=== PATIENT | female | born 1985 | race Caucasian/White ===

== ENCOUNTER → 2022-04-26 08:14 | Outpatient (BNVA) | payer MEDICAID, SELFPAY | PROVIDERS: Family Provider Family Medicine; PCP Family Medicine; Visit Provider Specialist | DX: G40.309 Generalized idiopathic epilepsy and epileptic syndromes, not intractable, without status epilepticus (principal); G80.3 Athetoid cerebral palsy; Z99.3 Dependence on wheelchair | CPT/HCPCS: 99204 ==

== ENCOUNTER → 2022-05-04 12:54 | Outpatient (BNVA) | payer MEDICAID, SELFPAY | PROVIDERS: Family Provider Family Medicine; PCP Family Medicine; Visit Provider Specialist | DX: G24.3 Spasmodic torticollis (principal); G80.3 Athetoid cerebral palsy; G40.309 Generalized idiopathic epilepsy and epileptic syndromes, not intractable, without status epilepticus | CPT/HCPCS: 64616; 99213; J0585 ==

== ENCOUNTER → 2022-08-24 13:40 | Outpatient (BNVA) | payer MEDICAID, SELFPAY | PROVIDERS: Family Provider Family Medicine; PCP Family Medicine; Visit Provider Specialist | DX: G24.3 Spasmodic torticollis (principal); G40.309 Generalized idiopathic epilepsy and epileptic syndromes, not intractable, without status epilepticus; G80.0 Spastic quadriplegic cerebral palsy; G80.3 Athetoid cerebral palsy | CPT/HCPCS: 64616; 64644; 99214; J0585 ==

== ENCOUNTER → 2022-11-23 13:04 | Outpatient (BNVA) | payer MEDICAID, SELFPAY | PROVIDERS: Family Provider Family Medicine; PCP Family Medicine; Visit Provider Specialist | DX: G80.0 Spastic quadriplegic cerebral palsy (principal); G40.309 Generalized idiopathic epilepsy and epileptic syndromes, not intractable, without status epilepticus; F40.298 Other specified phobia; Z99.3 Dependence on wheelchair | CPT/HCPCS: 64616; 99214; J0585 ==

== ENCOUNTER → 2023-03-01 13:33 | Outpatient (BNVA) | payer MEDICAID, SELFPAY | PROVIDERS: Family Provider Family Medicine; PCP Family Medicine; Visit Provider Specialist | DX: G80.0 Spastic quadriplegic cerebral palsy (principal) | CPT/HCPCS: 64644; J0585 ==

== ENCOUNTER → 2023-06-07 08:40 | Outpatient (BNVA) | payer MEDICAID, SELFPAY | PROVIDERS: Family Provider Family Medicine; PCP Family Medicine; Visit Provider Specialist | DX: G80.3 Athetoid cerebral palsy; G40.309 Generalized idiopathic epilepsy and epileptic syndromes, not intractable, without status epilepticus; G80.9 Cerebral palsy, unspecified | CPT/HCPCS: 64644; 64645; 99214; J0585 ==

== ENCOUNTER → 2023-09-06 08:33 | Outpatient (BNVA) | payer MEDICAID, SELFPAY | PROVIDERS: Family Provider Family Medicine; PCP Family Medicine; Visit Provider Specialist | DX: G80.0 Spastic quadriplegic cerebral palsy (principal); G80.3 Athetoid cerebral palsy; G80.9 Cerebral palsy, unspecified; G40.309 Generalized idiopathic epilepsy and epileptic syndromes, not intractable, without status epilepticus | CPT/HCPCS: 64644; 64645; 99212; J0585 ==

== ENCOUNTER → 2023-11-30 07:57 | Outpatient (BNVA) | payer MEDICAID, SELFPAY | PROVIDERS: Family Provider Family Medicine; PCP Family Medicine; Visit Provider Specialist | DX: G80.3 Athetoid cerebral palsy (principal); G40.309 Generalized idiopathic epilepsy and epileptic syndromes, not intractable, without status epilepticus; G80.0 Spastic quadriplegic cerebral palsy | CPT/HCPCS: 64644; 99212; J0585 ==

== ENCOUNTER → 2024-02-29 07:32 | Outpatient (BNVA) | payer MEDICAID, SELFPAY | PROVIDERS: Family Provider Family Medicine; PCP Family Medicine; Visit Provider Specialist | DX: G80.0 Spastic quadriplegic cerebral palsy (principal); G80.3 Athetoid cerebral palsy; G40.309 Generalized idiopathic epilepsy and epileptic syndromes, not intractable, without status epilepticus | CPT/HCPCS: 64644; 99212; J0585 ==

== ENCOUNTER → 2024-06-06 07:38 | Outpatient (BNVA) | payer MEDICAID, SELFPAY | PROVIDERS: Family Provider Family Medicine; PCP Family Medicine; Visit Provider Specialist | DX: G80.0 Spastic quadriplegic cerebral palsy (principal) | CPT/HCPCS: 64644; J0585; J9999 ==

== ENCOUNTER → 2024-09-04 07:55 | Outpatient (BNVA) | payer MEDICAID, SELFPAY | PROVIDERS: Family Provider Family Medicine; PCP Family Medicine; Visit Provider Specialist | DX: G80.0 Spastic quadriplegic cerebral palsy (principal) | CPT/HCPCS: 64644; J0585; J9999 ==

== ENCOUNTER → 2024-10-22 11:18 | Outpatient (BNVA) | payer MEDICAID, SELFPAY | PROVIDERS: Family Provider Family Medicine; PCP Family Medicine; Visit Provider Specialist | DX: G40.309 Generalized idiopathic epilepsy and epileptic syndromes, not intractable, without status epilepticus (principal); G80.3 Athetoid cerebral palsy; G80.0 Spastic quadriplegic cerebral palsy | CPT/HCPCS: 99214 ==

== ENCOUNTER → 2024-12-04 12:28 | Outpatient (BNVA) | payer MEDICAID, SELFPAY | PROVIDERS: Family Provider Family Medicine; PCP Family Medicine; Visit Provider Specialist | DX: G80.0 Spastic quadriplegic cerebral palsy (principal); G80.3 Athetoid cerebral palsy; G40.309 Generalized idiopathic epilepsy and epileptic syndromes, not intractable, without status epilepticus | CPT/HCPCS: 64644; J0585; J9999 ==

== ENCOUNTER 2025-01-19 16:37 | Emergency (ER) | payer MEDICAID, SELFPAY ==
[2025-01-19] VITALS (7 sets, daily range): BP systolic 104–119; BP diastolic 76–98; PULSE 108–129; RESP 20; TEMP 36.9; O2SAT 93–97
--- NOTE | 2025-01-19 17:39 | W.ED.ABDPA2 ---
HPI - Abdominal Pain General: Chief Complaint: Abdominal Pain Stated Complaint: abd pains, no bowel movement in a few weeks Time Seen by Provider: 01/19/25 17:10 History of Present Illness: 39-year-old female presents to the emergency room with her mother complaining of being constipated. Mother states she has not a bowel movement last couple weeks concerned that she may be impacted no fever sweats chills no vomiting or diarrhea. Patient has severe cerebral palsy and is nonverbal. Related Data Home Medications ?Medication ?Instructions ?Recorded ?Confirmed buspirone 5 mg tablet 5 mg PO TID 04/26/22 12/04/24 citalopram 40 mg tablet 40 mg PO DAILY 04/26/22 12/04/24 Previous Rx's ?Medication ?Instructions ?Recorded yaswalzgdohqlvz-jihhmrgstwygnxi-RT 5 ml PO Q6H PRN cold symptoms #118 12/16/22 2 mg-30 mg-10 mg/5 mL oral syrup mL (Bromfed DM) baclofen 5 mg tablet 5 mg PO QID #360 tabs 10/28/24 lamotrigine 50 mg disintegrating See Rx Instructions .Route 11/26/24 tablet .COMPLEX #540 tabs diazepam 10 mg tablet 10 mg PO ONCE PRN anxiety 24 hours 12/04/24 #2 tabs Allergies Allergy/AdvReac Type Severity Reaction Status Date / Time No Known Allergies Allergy Verified 01/19/25 16:48 [facility] ED PFSH: Medical History (Updated 01/19/25 @ 20:04 by José Matos DO) Cerebral palsy Social History Smoking and tobacco/nicotine status: never used tobacco/nicotine Second hand smoke exposure: No Alcohol intake: never Physical Exam HENMT: COMMON NORMALS: normocephalic, atraumatic and hearing grossly normal bilaterally HEAD & SCALP: normocephalic and atraumatic Resp: COMMON NORMALS: normal respiratory effort, No retractions, No use of accessory muscles and clear to auscultation bilaterally AUSCULTATION: clear to auscultation bilaterally Cardio: COMMON NORMALS: regular rate, regular rhythm and No murmurs present (Cardio) RATE: regular rate RHYTHM: regular rhythm GI: COMMON NORMALS: Soft to palpation and No hepatosplenomegaly present AUSCULTATION: Yes normoactive bowel sounds PALPATION: Yes Soft to palpation, No Tenderness to palpation present (GI), No Guarding due to palpation present (GI) and Yes No hepatosplenomegaly present Extremity: COMMON NORMALS: capillary refill normal, no clubbing, cyanosis or edema, no calf tenderness and no pedal edema OTHER: Contractures of all limbs. Skin: COMMON NORMALS: no rashes or lesions noted GENERAL SKIN EXAM: no rashes or lesions noted Course Vital Signs: Vital signs: Vital Signs Temperature 98.4 F 01/19/25 16:41 Pulse Rate 108 H 01/19/25 21:20 Respiratory Rate 20 H 01/19/25 18:00 Blood Pressure 113/87 01/19/25 21:20 Pulse Oximetry 96 01/19/25 21:20 Oxygen Delivery Me thod Room Air 01/19/25 21:00 MDM - Abdominal Pain Medical Decision Making Medical decision making Social determinants: Patient has severe's CPE has good support from her mother is her primary caregiver I reviewed the patient's medical record. I reviewed the patient's current home meds. Alternate historians: Mother Differential diagnosis: Constipation, bowel obstruction, sepsis, cystitis, pyelonephritis Lab Review: Labs reviewed as found in the chart. No leukocytosis 3+ ketones in the urine but no signs of infection chemistry panel shows very slight anion gap otherwise unremarkable Imaging: Acute abdominal series no retained stool no signs of bowel obstruction Assessment of risk Level of risk: Low Hospitalization considerations: Consideration for hospitalization pending findings. No emergent findings did not require hospitalization Reexamination: Unchanged Assessment and plan: Patient given IV fluids reviewed findings with the mother. Discharge patient home have her follow-up with primary care. Lab Data 01/19/25 18:05 01/19/25 18:05 Labs/Radiology: Radiology Impressions Chest/Abdomen X-ray 01/19/25 17:40 IMPRESSION: No acute intra-abdominal findings. Laboratory Results WBC 7.67 10^3/uL (3.29-11.43) 01/19/25 18:05 RBC 4.95 10^6/uL (3.85-5.65) 01/19/25 18:05 Hgb 13.10 g/dL (11.27-16.99) 01/19/25 18:05 Hct 41.6 % (36-47) 01/19/25 18:05 MCV 84.0 fl (85-98) L 01/19/25 18:05 MCH 26.5 pg (27-33) L 01/19/25 18:05 MCHC 31.5 g/dL (30-55) 01/19/25 18:05 RDW 13.6 % (12.1-15.1) 01/19/25 18:05 Plt Count 259 10^3/cmm (157-399) 01/19/25 18:05 MPV 10.3 fL (7.4-10.4) 01/19/25 18:05 Neut % (Auto) 54.1 % 01/19/25 18:05 Lymph % (Auto) 36.1 % 01/19/25 18:05 Juncos % (Auto) 5.0 % 01/19/25 18:05 Eos % (Auto) 4.0 % 01/19/25 18:05 Baso % (Auto) 0.5 % 01/19/25 18:05 Neut # (Auto) 4.15 10^3/uL (1.8-7.7) 01/19/25 18:05 Lymph # (Auto) 2.8 10^3/uL (0.8-4.8) 01/19/25 18:05 Juncos # (Auto) 0.4 10^3/uL (0.2-0.9) 01/19/25 18:05 Eos # (Auto) 0.3 10^3/uL (0.0-0.8) 01/19/25 18:05 Baso # (Auto) 0.0 10^3/uL (0.0-0.1) 01/19/25 18:05 Nucleated RBC % (auto) 0 % 01/19/25 18:05 Nucleated RBCs # 0.0 /100WBC 01/19/25 18:05 Sodium 142 mmol/L (136-145) 01/19/25 18:05 Potassium 4.3 mmol/L (3.5-5.1) 01/19/25 18:05 Chloride 105 mmol/L (98-107) 01/19/25 18:05 Carbon Dioxide 21 mmol/L (22-29) L 01/19/25 18:05 Anion Gap 20.3 (5-19) H 01/19/25 18:05 BUN 13 mg/dL (6-20) 01/19/25 18:05 Creatinine 0.9 mg/dL (0.5-0.9) 01/19/25 18:05 GFR Calculation 69.7 mL/min (90-130) L 01/19/25 18:05 Glucose 82 mg/dL (65-115) 01/19/25 18:05 Calculated Osmolality 293 mOsm/kg (285-295) 01/19/25 18:05 Lactic Acid 1.9 mmol/L (0.5-2.2) 01/19/25 18:05 Calcium 9.5 mg/dL (8.5-10.5) 01/19/25 18:05 Total Bilirubin 0.3 mg/dL (0.15-1.2) 01/19/25 18:05 AST 20 U/L (0-32) 01/19/25 18:05 ALT 11 U/L (0-33) 01/19/25 18:05 Alkaline Phosphatase 65 U/L (35-105) 01/19/25 18:05 Total Protein 7.6 g/dL (6.6-8.7) 01/19/25 18:05 Albumin 4.4 g/dL (3.5-5.2) 01/19/25 18:05 Globulin 3.2 g/dL (1.3-4.6) 01/19/25 18:05 Lipase 48 U/L (13-60) 01/19/25 18:05 HCG, Qual Negative (Negative) 01/19/25 18:05 Urine Color Yellow (Yellow) 01/19/25 18:10 Urine Appearance Clear (CLEAR) 01/19/25 18:10 Urine pH 5.5 (5-7) 01/19/25 18:10 Ur Specific [place] 1.032 (1.005-1.030) H 01/19/25 18:10 Urine Protein 1+ (Negative) A 01/19/25 18:10 Urine Glucose (UA) Negative (Normal) 01/19/25 18:10 Urine Ketones 3+ (Negative) H 01/19/25 18:10 Urine Blood Negative (Negative) 01/19/25 18:10 Urine Nitrate Negative (Negative) 01/19/25 18:10 Urine Bilirubin Negative (Negative) 01/19/25 18:10 Urine Urobilinogen 1.0 mg/dL (Negative) 01/19/25 18:10 Ur Leukocyte Esterase Negative (Negative) 01/19/25 18:10 Urine RBC 0-2 /hpf (0-2) 01/19/25 18:10 Urine WBC 0-5 /hpf (0-5) 01/19/25 18:10 Ur Squamous Epith Cells 0-5 /hpf (0-5) 01/19/25 18:10 Amorphous Sediment Not Reportable 01/19/25 18:10 Urine Bacteria None seen /hpf (NONE) 01/19/25 18:10 Hyaline Casts 2.87 /lpf 01/19/25 18:10 All radiology interpretation(s) finalized by discharge Discharge Plan Discharge Patient Disposition: Home Clinical Impression: Dehydration, Spastic quadriplegic cerebral palsy Condition: Stable Prescriptions: No Action vjsewrdwaypolzi-vawmuvuyj-AK [Bromfed DM] 2-30-10 mg/5 mL syrup 5 ml PO Q6H PRN (Reason: cold symptoms) Qty: 118 0RF citalopram 40 mg tablet 40 mg PO DAILY buspirone 5 mg tablet 5 mg PO TID diazepam 10 mg tablet 10 mg PO ONCE PRN (Reason: anxiety) 1 Days Qty: 2 3RF Rx Instructions: Take 1 prior to procedure and repeat if necessary baclofen 5 mg tablet 5 mg PO QID Qty: 360 0RF lamotrigine 50 mg tablet,disintegrating See Rx Instructions .ROUTE .COMPLEX Qty: 540 3RF Dose Instruction: TAKE THREE TABLETS BY MOUTH TWICE DAILY Rx Instructions: TAKE THREE TABLETS BY MOUTH TWICE DAILY Discharge Orders: Discharge ED (Routine); Ordered 01/19/25 Ordered By: José Matos Referrals: Johanny Jones MD [Primary Care Provider, Family Practice] Discharge Diet: Usual diet Discharge Activity: Resume usual activity Patient Instructions: Abdominal Pain (ED), Opioid Safety, Pain Management, Patient Portal & Claudia Instructions Activity Restrictions/Additional Instructions: Thank you for choosing [facility] for your healthcare needs today. It is very important that you follow up as instructed or that you return to the Emergency Department should you have concerns or if your condition changes or worsens in any way. Emergency department visits are focused on emergent conditions, in some cases you may require further evaluation on an outpatient basis. You were seen in the emergency room concerned about constipation. KUB did not show any retained stool in the rectum or the descending colon. Urine did show some ketones suggesting mild dehydration. You are given IV fluids. Your other labs did not show significant abnormality. Will discharge you home increase fluid intake and follow-up with your primary care doctor. (Please note that included in your discharge packet is information concerning opioid safety and pain management. This information is given to all patients were discharged from the ER regardless of their discharge diagnosis or the medicines they usually take or are prescribed.) Print Language: Kuwaiti Coding Level of Care Code ED French Cord Binder for Shea Gaxiola
--- NOTE | 2025-01-19 17:40 | XRR_ITS ---
PROCEDURE INFORMATION: Exam: XR Abdomen Exam date and time: 01/19/2025 6:18 PM Age: 39 years old Clinical indication: Constipation; PT in the position got best images possible; Additional info: Abdominal pain TECHNIQUE: Imaging protocol: Radiologic exam of the abdomen. Views: 2 Views. Upright and supine views. COMPARISON: No relevant prior studies available. FINDINGS: Lungs: Lung bases are clear. Gastrointestinal tract: Nonobstructive bowel gas pattern. Mild increased stool burden predominantly about the hepatic flexure/right upper quadrant. Intraperitoneal space: Normal. No free air. Bones/joints: Levoscoliosis of thoracolumbar spine. XR/XR acute abdomen series [id number] IMPRESSION: No acute intra-abdominal findings.
[2025-01-19 18:28] LABS: Glucose Urine UA Negative (Normal); Nitrate Urine Negative (Negative)
[2025-01-19 18:33] LABS: Add Urine Microscopic? YES
[2025-01-19 18:57] LABS: Specific Gravity, Urine 1.032 (1.005-1.030)
[2025-01-19 19:00] LABS: Hematocrit 41.6 % (36-47); Hemoglobin 13.10 g/dL (11.27-16.99); Mean Corpuscular HGB Conc 31.5 g/dL (30-55); Mean Corpuscular Hemoglobin 26.5 pg (27-33); Mean Corpuscular Volume 84.0 fl (85-98); Nucleated Red Blood Cells % 0 %; Platelet Count 259 10^3/cmm (157-399); Red Blood Count 4.95 10^6/uL (3.85-5.65); White Blood Count 7.67 10^3/uL (3.29-11.43)
[2025-01-19 19:11] LABS: Alanine Aminotransferase 11 U/L (0-33); Albumin Level 4.4 g/dL (3.5-5.2); Alkaline Phosphatase 65 U/L (35-105); Anion Gap 20.3 (5-19); Aspartate Amino Transferase 20 U/L (0-32); Blood Urea Nitrogen 13 mg/dL (6-20); Calcium 9.5 mg/dL (8.5-10.5); Carbon Dioxide 21 mmol/L (22-29); Chloride 105 mmol/L (98-107); Globulin 3.2 g/dL (1.3-4.6); Glucose 82 mg/dL (65-115); Lipase 48 U/L (13-60); Osmolality Calculated 293 mOsm/kg (285-295); Potassium 4.3 mmol/L (3.5-5.1); Sodium 142 mmol/L (136-145); Total Protein 7.6 g/dL (6.6-8.7)
[2025-01-19 19:15] LABS: HCG, Serum Qual Negative (Negative)
[2025-01-19 19:16] LABS: Lactic Sepsis W/Reflex 1.9 mmol/L (0.5-2.2)
--- OUTSIDE RECORDS SUMMARY | 2025-01-19 21:24 | XMS_ITS | Encounter Summary ---
Author Organization [facility] Address [address] [place] [address] Care Team Providers Care Wirer Passenger Car Name Role Phone Cj Huynh DO Primary Care Provider Unava ilable Encounter Details Date Type Department Care Team (Latest Contact Info) Description 02/19/[address] [phone] Cj Huynh DO NO ADDRESS ON FILE Acute Pharyngitis (Primary Dx) Social History Tobacco Use Types Packs/Day Years Used Date Smoking Tobacco: Never Assessed Comments Unknown Sex and Gender Information Value Date Recorded Sex Assigned at Not on file Legal Sex Female 2:43 AM TITLE EXAMINER Gender Identity Not on file Sexual Orientation Not on file documented as of this encounter Plan of Treatment Not on file documented as of this encounter Visit Diagnoses Diagnosis Acute pharyngitis- Primary documented in this encounter Care Teams Wirer Passenger Car Relationship Specialty Start Date End Date Cj Huynh DO PCP - General Family Practice 03/19/12 documented as of this encounter
--- OUTSIDE RECORDS SUMMARY | 2025-01-19 21:24 | XMS_ITS | Encounter Summary ---
Author Organization [facility] Address [address] [place] [address] Care Team Providers Care Landscaping Crew Leader Name Role Phone Cj Huynh DO Primary Care Provider Unava ilable Encounter Details Date Type Department Care Team (Latest Contact Info) Description 05/21/[address] [phone] Cj Huynh DO NO ADDRESS ON FILE Allergic Rhinitis, Cause Unspecified (Primary Dx); Acute Upper Respiratory Infections of Unspecified Site; Cough; Unspecified Infantile Cerebral Palsy (CMS/HCC) Social History Tobacco Use Types Packs/Day Years Used Date Smoking Tobacco: Never Assessed Comments Unknown Sex and Gender Information Value Date Recorded Sex Assigned at Not on file 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
--- OUTSIDE RECORDS SUMMARY | 2025-01-19 21:24 | XMS_ITS | Encounter Summary ---
Author Organization [facility] Address [address] [place] [address] Care Team Providers Care Supervisor Gluing Name Role Phone Cj Huynh DO Primary Care Provider Unava ilable Encounter Details Date Type Department Care Team (Latest Contact Info) Description 05/04/[address] [phone] Cj Huynh DO NO ADDRESS ON FILE Other Convulsions (CMS/HCC) (Primary Dx) Social History Tobacco Use Types Packs/Day Years Used Date Smoking Tobacco: Never Assessed Comments Unknown Sex and Gender Information Value Date Recorded Sex Assigned at Not on file 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 Sex Female 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 Gender Identity Not on file Sexual Orientation Not on file documented as of this encounter Plan of Treatment Not on file documented as of this encounter Procedures Procedure Name Priority Date/Time Associated Diagnosis Comments PHENOBARBITAL LEVEL Routine 05/04/2006 8 :55 AM CDT documented in this encounter Results * PHENOBARBITAL LEVEL (05/04/2006 8:55 AM CDT) PHENOBARBITAL LEVEL 20.0 15.0 - 40.0 mcg/mL INTERFACE SYSTEM 05/04/2006 8:55 AM CDT us jC Huynh DO CHEMISTRY ORDERABLES Edited INTERFACE SYSTEM Refer to clinic/hospital department documented in this encounter Visit Diagnoses Diagnosis Other convulsions- Primary documented in this encounter Care Teams Supervisor Gluing Relationship Specialty Start Date End Date Cj Huynh DO PCP - General Family Practice 03/19/12 documented as of this encounter
--- OUTSIDE RECORDS SUMMARY | 2025-01-19 21:24 | XMS_ITS | Encounter Summary ---
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
--- OUTSIDE RECORDS SUMMARY | 2025-01-19 21:24 | XMS_ITS | Encounter Summary ---
Author Organization [facility] Address [address]ños: [place] [address] Care Team Providers Care Can Handler Name Role Phone Cj Huynh DO Primary Care Provider Unava ilable Encounter Details Date Type Department Care Team (Late st Contact Info) Description 02/16/1999 Outpatient Historical Chacorta Segundo MD [address] [place] [phone] Social History Tobacco Use Types Packs/Day Years Used Date Smoking Tobacco: Never Assessed Comments Unknown Sex and Gender Information Value Date Recorded Sex Assigned at Not on file Legal Sex Female 2:43 AM RN LACTATION CONSULTANT Gender Identity Not on file Sexual Orientation Not on file documented as of this encounter Plan of Treatment Not on file documented as of this encounter Visit Diagnoses Not on filedocumented in this encounter Care Teams Can Handler Relationship Specialty Start Date End Date Cj Huynh DO PCP - General Family Practice 03/19/12 documented as of this encounter
--- OUTSIDE RECORDS SUMMARY | 2025-01-19 21:24 | XMS_ITS | Encounter Summary ---
Author Organization [facility] Address [address] [place] [address] Care Team Providers Care Chemist Instrumentation Name Role Phone Cj Huynh DO Primary Care Provider Unava ilable Encounter Details Date Type Department Care Team (Latest Contact Info) Description 08/02/[address] [phone] Cj Huynh DO NO ADDRESS ON FILE Routine child health exam (Primary Dx); SKIN HYPERTRO/ATROPH NOS; VIRAL WARTS NOS Social History Tobacco Use Types Packs/Day Years Used Date Smoking Tobacco: Never Assessed Comments Unknown Sex and Gender Information Value Date Recorded Sex Assigned at Not on file Legal Sex Female 2:43 AM LIBRARY CLERK TALKING BOOKS Gender Identity Not on file Sexual Orientation Not on file documented as of this encounter Plan of Treatment Not on file documented as of this encounter Visit Diagnoses Diagnosis Routine child health exam- Primary Routine or child health check Unspecified hypertrophic and atrophic condition of skin Viral warts, unspecified documented in this encounter Care Teams Chemist Instrumentation Relationship Specialty Start Date End Date Cj Huynh DO PCP - General Family Practice 03/19/12 documented as of this encounter
--- OUTSIDE RECORDS SUMMARY | 2025-01-19 21:24 | XMS_ITS | Encounter Summary ---
Author Organization [facility] Address [address] [place] [address] Care Team Providers Care Cage Shift Manager Name Role Phone Cj Huynh DO Primary Care Provider Unava ilable Encounter Details Date Type Department Care Team (Latest Contact Info) Description 10/03/[address] [facility] Medicine[address] [phone] Cj Huynh DO NO ADDRESS ON FILE Routine Child Health Exam (Primary Dx) Social History Tobacco Use Types Packs/Day Years Used Date Smoking Tobacco: Never Assessed Comments Unknown Sex and Gender Information Value Date Recorded Sex Assigned at Not on file Legal Sex Female 2:43 AM SHOE SINGER Gender Identity Not on file Sexual Orientation Not on file documented as of this encounter Plan of Treatment Not on file documented as of this encounter Visit Diagnoses Diagnosis Routine child health exam- Primary Routine infant or child health check documented in this encounter Care Teams Cage Shift Manager Relationship Specialty Start Date End Date Cj Huynh DO PCP - General Family Practice 03/19/12 documented as of this encounter
--- OUTSIDE RECORDS SUMMARY | 2025-01-19 21:24 | XMS_ITS | Encounter Summary ---
Author Organization [facility] Address [address] [place] [address] Care Team Providers Care Information Systems Auditor Name Role Phone Cj Huynh DO Primary Care Provider Unava ilable Encounter Details Date Type Department Care Team (Latest Contact Info) Description 10/03/[address] [phone] Cj Huynh DO NO ADDRESS ON FILE Other Convulsions (CMS/HCC) (Primary Dx) Social History Tobacco Use Types Packs/Day Years Used Date Smoking Tobacco: Never Assessed Comments Unknown Sex and Gender Information Value Date Recorded Sex Assigned at Not on file Legal Sex Female 2:43 AM SUBSTANCE ADDICTION COORDINATOR Gender Identity Not on file Sexual Orientation Not on file documented as of this encounter Plan of Treatment Not on file documented as of this encounter Procedures Procedure Name Priority Date/Time Associated Diagnosis Comments PHENOBARBITAL LEVEL Routine 10/03/2005 3 :17 PM CDT documented in this encounter Results * PHENOBARBITAL LEVEL (10/03/2005 3:17 PM CDT) PHENOBARBITAL LEVEL 24.4 15.0 - 40.0 mcg/mL INTERFACE SYSTEM 10/03/2005 3:17 PM CDT us Cj Huynh DO CHEMISTRY ORDERABLES Final R esult INTERFACE SYSTEM Refer to clinic/hospital department documented in this encounter Visit Diagnoses Diagnosis Other convulsions- Primary documented in this encounter Care Teams Information Systems Auditor Relationship Specialty Start Date End Date Cj Huynh DO PCP - General Family Practice 03/19/12 documented as of this encounter
--- OUTSIDE RECORDS SUMMARY | 2025-01-19 21:26 | XMS_ITS | Encounter Summary ---
Author Organization [facility] Address [address] [place] [address] Care Team Providers Care Sheep Sorter Name Role Phone Cj Huynh DO Primary Care Provider Unava ilable Encounter Details Date Type Department Care Team (Latest Contact Info) Description 01/13/2000 Outpatient Historical [facility] Medicine [address] [phone] Bandar Marie MD [address] [phone] Acute tonsillitis (Primary Dx) Social History Tobacco Use Types Packs/Day Years Used Date Smoking Tobacco: Never Assessed Comments Unknown Sex and Gender Information Value Date Recorded Sex Assigned at Not on file Legal Sex Female 2:43 AM 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
--- OUTSIDE RECORDS SUMMARY | 2025-01-19 21:26 | XMS_ITS | Encounter Summary ---
Author Organization [facility] Address [address] [place] [address] Care Team Providers Care Seasonal Customer Service Associate Name Role Phone Cj Huynh DO Primary Care Provider Unava ilable Encounter Details Date Type Department Care Team (Latest Contact Info) Description 09/14/[address] [phone] Cj Huynh DO NO ADDRESS ON FILE Other Specified Viral Warts (Primary Dx) Social History Tobacco Use Types Packs/Day Years Used Date Smoking Tobacco: Never Assessed Comments Unknown Sex and Gender Information Value Date Recorded Sex Assigned at Not on file Legal Sex Female 2:43 AM COAL GASIFICATION TECHNICIAN Gender Identity Not on file Sexual Orientation Not on file documented as of this encounter Plan of Treatment Not on file documented as of this encounter Visit Diagnoses Diagnosis Other specified viral warts- Primary documented in this encounter Care Teams Seasonal Customer Service Associate Relationship Specialty Start Date End Date Cj Huynh DO PCP - General Family Practice 03/19/12 documented as of this encounter
--- OUTSIDE RECORDS SUMMARY | 2025-01-19 21:26 | XMS_ITS | Encounter Summary ---
Author Organization [facility] Address [address] [place] [address] Care Team Providers Care Mold Press Operator Name Role Phone Cj Huynh DO Primary Care Provider Unava ilable Encounter Details Date Type Department Care Team (Latest Contact Info) Description 05/30/2004 Outpatient Historical [address] [phone] Cj Huynh DO NO ADDRESS ON FILE LOWER LEG INJURY NOS (Primary Dx) Social History Tobacco Use Types Packs/Day Years Used Date Smoking Tobacco: Never Assessed Comments Unknown Sex and Gender Information Value Date Recorded Sex Assigned at Not on file Legal Sex Female 2:43 AM LINUX SYSTEMS ANALYST Gender Identity Not on file Sexual Orientation Not on file documented as of this encounter Plan of Treatment Not on file documented as of this encounter Visit Diagnoses Diagnosis Injury, other and unspecified, knee, leg, ankle, and foot- Primary documented in this encounter Care Teams Mold Press Operator Relationship Specialty Start Date End Date Cj Huynh DO PCP - General Family Practice 03/19/12 documented as of this encounter
--- OUTSIDE RECORDS SUMMARY | 2025-01-19 21:26 | XMS_ITS | Encounter Summary ---
Author Organization [facility] Address [address] [place] [address] Care Team Providers Care Screen Printing Machine Operator Helper Name Role Phone Cj Huynh DO Primary Care Provider Unava ilable Encounter Details Date Type Department Care Team (Latest Contact Info) Description 09/14/[address] [phone] Cj Huynh DO NO ADDRESS ON FILE Other Convulsions (CMS/HCC) (Primary Dx) Social History Tobacco Use Types Packs/Day Years Used Date Smoking Tobacco: Never Assessed Comments Unknown Sex and Gender Information Value Date Recorded Sex Assigned at Not on file 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 Gender Identity Not on file Sexual Orientation Not on file documented as of this encounter Plan of Treatment Not on file documented as of this encounter Procedures Procedure Name Priority Date/Time Associated Diagnosis Comments PHENOBARBITAL LEVEL Routine 09/14/2006 9 :00 AM CDT documented in this encounter Results * PHENOBARBITAL LEVEL (09/14/2006 9:00 AM CDT) PHENOBARBITAL LEVEL 20.2 15.0 - 40.0 mcg/mL INTERFACE SYSTEM 09/14/2006 9:00 AM CDT us Cj Huynh DO CHEMISTRY ORDERABLES Edited INTERFACE SYSTEM Refer to clinic/hospital department documented in this encounter Visit Diagnoses Diagnosis Other convulsions- Primary documented in this encounter Care Teams Screen Printing Machine Operator Helper Relationship Specialty Start Date End Date Cj Huynh DO PCP - General Family Practice 03/19/12 documented as of this encounter
--- OUTSIDE RECORDS SUMMARY | 2025-01-19 21:26 | XMS_ITS | Clinical Summary ---
Author Organization [facility] Address [address] [place]: Epic Prelude ADT [place] [address] Care Team Providers Care Internet E Commerce Specialist Name Role Phone Cj Huynh DO Primary Care Provider Unava ilable Allergies No known active allergies Medications citalopram (CeleXA) 10 mg tablet 02/17/2019 Active PHENobarbitaL (LUMINAL) 32.4 mg tablet Take 3 Tablet (97.2 mg) by mouth daily at bedtime. 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 Cerebral palsy 06/24/2008 Immunizations Immunization Administration Dates Next Due (TDVAX)(7 YRS UP) TETANUS AN D DIPHTHERIA TOXOIDS, ADSORBED (2 LF OF TETANUS TOXOID AND 2 LF OF DIPHTHERIA TOXOID), 0.5ML (PF), IM 10/10/2002 Hepatitis B Vaccine 06/23/1999,01/20/1999,1998 Influenza Vaccine Quad Split 3+ Yrs Im 4 Influenza Vaccine Split 3+ Yrs IM 11/19/2008, Influenza Vaccine Split 3+ Yrs PF IM 03/21/2012 Skin Test TB 05/11/2009 Family History Medical History Relation Name Comments Colon Cancer Neg Hx Social History Tobacco Use Types Packs/Day Years Used Date Smoking Tobacco: Never Smokeless Tobacco: Never Alcohol Use Standard Drinks/Week Comments No 0 (1 standard drink = 0.6 oz pur e alcohol) Comments Unknown Sex and Gender Information Value Date Recorded Sex Assigned at Not on file Legal Sex Female 4:11 AM 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 Gender Identity Not on file Sexual Orientation Not on file Last Filed Vital Signs Vital Sign Reading Time Taken Comments Blood Pressure 111/83 03/26/2019 1:09 PM 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 ADJUSTER Pulse 100 03/26/2019 1:09 PM 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 ADJUSTER Temperature 37.3 C (99.1 F) 10/22/2014 9:20 AM CDT Respiratory Rate 18 03/26/2019 1:09 PM 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 ADJUSTER Oxygen Saturation - - Inhaled Oxygen Concentration - - Weight 54.4 kg (120 lb) 03/24/2019 4:05 PM 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 ADJUSTER Height 149.9 cm (4' 11 ) 03/24/2019 4:05 PM 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 ADJUSTER Body Mass Index 24.24 03/24/2019 4:05 PM 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 ADJUSTER Plan of Treatment Health Maintenance Due Date Last Done Comments DTAP/TDAP/TD VACCINES (2 - Tdap) 10/11/2002 10/11/19 03 HPV/Cotest (21-29) 2006 CERVICAL CANCER SCREENING 07/30/2015 HPV/Cotest (30-65) 07/30/2015 PAP SMEAR 07/30/2015 INFLUENZA VACCINE (#1) 2024 4, 03/21/2012, 11/19/2008, Additional history exists HEPATITIS B VACCINES Completed 06/23/1999, 01/20/1999, 10/29/1998 HPV VACCINES (No Doses Required) Completed Care Teams Internet E Commerce Specialist Relationship Specialty Start Date End Date Cj Huynh DO NO ADDRESS ON FILE PCP - General Family Practice 03/19/12
--- OUTSIDE RECORDS SUMMARY | 2025-01-19 21:26 | XMS_ITS | Encounter Summary ---
Author Organization [facility] Address [address] [place] [address] Care Team Providers Care Quilt Sewer Name Role Phone Cj Huynh DO Primary Care Provider Unava ilable Encounter Details Date Type Department Care Team (Latest Contact Info) Description 08/17/[address] [phone] Cj Huynh DO NO ADDRESS ON FILE ALLERGIC RHINITIS NOS (Primary Dx); TRACHEA/BRONCHUS DIS NEC; COUGH Social History Tobacco Use Types Packs/Day Years Used Date Smoking Tobacco: Never Assessed Comments Unknown Sex and Gender Information Value Date Recorded Sex Assigned at Not on file 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
--- OUTSIDE RECORDS SUMMARY | 2025-01-19 21:27 | XMS_ITS | Clinical Summary ---
Author Organization [facility] Address [address] [place] [address] Care Team Providers Care Rice Field Worker Name Role Phone Cj Huynh DO Primary Care Provider Unava ilable Allergies No known active allergies Medications PHENobarbital (LUMINAL) 32.4 mg tablet Take 3 Tablet (97.2 mg) by mouth daily at bedtime. 90 Tablet 5 02/02/2015 Active citalopram (CeleXA) 10 mg tablet 02/17/2019 Active Active Problems Problem Noted Date Diagnosed [...] = 0.6 oz pur e alcohol) Comments No Sex and Gender Information Value Date Recorded Sex Assigned at Not on file Legal Sex Female 2:43 AM SLOTTER OPERATOR Gender Identity Not on file Sexual Orientation Not on file Last Filed Vital Signs Vital Sign Reading Time Taken Comments Blood Pressure 111/83 03/26/2019 1:09 PM SLOTTER OPERATOR Pulse 100 03/26/2019 1:09 PM SLOTTER OPERATOR Temperature 37.3 C (99.1 F) 10/22/2014 9:20 AM CDT Respiratory Rate 18 03/26/2019 1:09 PM SLOTTER OPERATOR Oxygen Saturation 100% 03/26/2019 1:09 PM SLOTTER OPERATOR Inhaled Oxygen Concentration - - Weight 54.4 kg (120 lb) 03/24/2019 4:05 PM SLOTTER OPERATOR Height 149.9 cm (4' 11 ) 03/24/2019 4:05 PM SLOTTER OPERATOR Body Mass Index 24.24 03/24/2019 4:05 PM SLOTTER OPERATOR Plan of Treatment Health Maintenance Due Date Last Done Comments DTAP/TDAP/TD VACCINES (2 - Tdap) 10/11/2002 10/11/19 03 HPV/Cotest (21-29) 2006 CERVICAL CANCER SCREENING 07/30/2015 HPV/Cotest (30-65) 07/30/2015 PAP SMEAR 07/30/2015 INFLUENZA VACCINE (#1) 2024 4, 03/21/2012, 11/19/2008, Additional history exists HEPATITIS B VACCINES Completed 06/23/1999, 01/20/1999, 10/29/1998 HPV VACCINES (No Doses Required) Completed Insurance [place] [address] [place] [id number] Advance Directives For more information, please contact: [phone] * Full Code (Latest Code Status on File) Date Activated Date Inactivated Comments 03/26/2019 11:46 AM 03/26/2019 3:20 PM Care Teams Rice Field Worker Relationship Specialty Start Date End Date Cj Huynh DO PCP - General Family Practice 03/19/12
--- OUTSIDE RECORDS SUMMARY | 2025-01-19 21:27 | XMS_ITS | Encounter Summary ---
Author Organization [facility] Address [address] [place] [address] Care Team Providers Care Infrastructure Security Architect Name Role Phone Cj Huynh DO Primary Care Provider Unamarcia ilable Encounter Details Date Type Department Care Team (Late st Contact Info) Description 02/01/2015 Nurse Triage Report [id number] ABSTRACTION Ana Paula Pablo, RN Social History Tobacco Use Types Packs/Day Years Used Date Smoking Tobacco: Never Smokeless Tobacco: Never Alcohol Use Standard Drinks/Week Comments No 0 (1 standard drink = 0.6 oz pur e alcohol) Comments No Sex and Gender Information Value Date Recorded Sex Assigned at Not on file Legal Sex Female 2:43 AM 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 Report feedback to Dr. Cj Huynh <<<<<<<< TRIAGE NOTE >>>>>>>> Triage Note: Floor And Wall Applier Liquid Ana Paula Pablo added this note on Feb 01 2015 8:09PM: Pt's mom noted to be on PHI. Pt's mom informed not able to call in phenobarbital. Mom encouraged to speak with pharmacist regarding possibility of partial or full early refill. Otherwise, mom encouraged to call physician office in AM to discuss need for emergency fill due to lost prescription. Mom verb understanding. <<<<<<<< TRIAGE/OUTCOME >>>>>>>> Guideline Title: Medication Questions - Adult Recommended Disposition: Speak with Provider or Pharmacist within 24 hours Original Inclination: Call Provider/See in 24 Intended Action: Call or See Provider within 24 hrs Physician Contacted: No Requests refill of prescribed medication with valid refills; lack of medications does not put patient at clinical risk ? YES ING CREW FOREMAN documented in this encounter Plan of Treatment Not on file documented as of this encounter Visit Diagnoses Not on filedocumented in this encounter Care Teams Infrastructure Security Architect Relationship Specialty Start Date End Date Cj Huynh DO PCP - General Family Practice 03/19/12 documented as of this encounter
== END 2025-01-19 21:22 | disposition home or self-care (01) ==
PROVIDERS: Physician Assistant; Emergency Provider Family Medicine; PCP Family Medicine
DX: E86.0 Dehydration (principal); G80.0 Spastic quadriplegic cerebral palsy
CPT/HCPCS: 36415; 74022; 80053; 81001; 83605; 83690; 84703; 85025; 96360; 99284; J7030